=== PATIENT | female | born 1975 | race Caucasian/White ===

== ENCOUNTER 2020-11-29 00:26 | Emergency (ER) | payer BC ==
[~2020-11-29] VITALS: Ht 167.6 cm; Wt 113.4 kg
[2020-11-29] MEDS ORDERED: CASIRIVIMAB/IMDEVIMAB 10 ML in SODIUM CHLORIDE 0.9% 100 ML IV ONE (02:15)
[2020-11-29 04:52] VITALS: BP 118/67
== END 2020-11-29 04:15 | disposition home or self-care (01) ==
LOC: ER 01:08
DX: R05 Cough (principal); R51.9 Headache, unspecified; U07.1 COVID-19
CPT/HCPCS: 99283; J7050; U0002